=== PATIENT | female | born 1950 | race Caucasian/White ===

== ENCOUNTER → 2017-03-27 | Outpatient (CLI) | payer BC ==
[~2017-03-27] MED LIST: HYDR-842 PO; [UNRECOGNIZED DRUG - CODE] TOP
[2017-03-27 08:47] LABS: BASOPHILS % 0.6 % (0.0-2.0); EOSINOPHILS # 0.1 10^3/ul (0.0-0.5); EOSINOPHILS % 1.1 % (0.0-7.0); HEMATOCRIT 41.9 % (37.0-47.0); HEMOGLOBIN 14.1 g/dl (12.0-16.0); LYMPHOCYTES # 2.9 10^3/ul (0.8-2.9); LYMPHOCYTES % 40.7 % (15.0-51.0); MEAN CORPUSCULAR HGB CONC 33.7 g/dl (32.0-37.0); MEAN CORPUSCULAR VOLUME 89.1 fl (82.0-101.0); MEAN PLATELET VOLUME 9.1 fl (7.4-10.4); MONOCYTE # 0.6 10^3/ul (0.3-0.9); MONOCYTES % 8.6 % (0.0-11.0); NEUTROPHIL # 3.5 10^3/ul (1.6-7.5); NEUTROPHILS % 48.6 % (39.0-77.0); PLATELET COUNT 304 10^3/UL (140-415); RED CELL DISTRIBUTION WIDTH 12.6 % (11.5-14.5); WHITE BLOOD COUNT 7.2 10^3/ul (4.8-10.8)
[2017-03-27 09:15] LABS: ALBUMIN 4.1 g/dl (3.3-4.9); ALBUMIN/GLOBULIN RATIO 1.13; BILIRUBIN,INDIRECT 0.6 mg/dl (0-1.1); BILIRUBIN,TOTAL 0.6 mg/dl (0.2-1.3); CALCIUM 9.4 mg/dl (8.4-10.2); CHOL/HDL RATIO 3.6 RATIO; CREATININE 0.77 mg/dl (0.44-1.00); POTASSIUM 4.3 mmol/L (3.5-5.1); TOTAL PROTEIN 7.7 g/dl (6.1-8.1)
[2017-03-27 09:45] LABS: THYROID STIMULATING HORMONE 1.32 MIU/L (0.465-4.680)
--- NOTE | 2017-03-27 09:47 | RADRPT ---
PROCEDURE: XR Right Shoulder. CLINICAL INDICATION: Right shoulder pain. TECHNIQUE: Three views. Frontal internal rotation, frontal external rotation, and scapular Y-view . COMPARISON: No prior study is available for comparison. FINDINGS: There is no fracture or dislocation. The soft tissues are normal. Articular surfaces are intact. There is no lytic or blastic lesion. There is no radiopaque foreign body. IMPRESSION: 1. Normal images of the right shoulder. RPTAT: QQ .Jase Velasquez MD, MD Date Time Electronically viewed and signed by .Jase Velasquez MD, MD on 03/27/2017 09:46 .R/
--- NOTE | 2017-03-27 09:47 | RADRPT ---
PROCEDURE: XR Left Hip. CLINICAL INDICATION: Left hip pain. TECHNIQUE: Two views. Frontal and lateral. COMPARISON: No prior studies are available for comparison. FINDINGS: There is no fracture or dislocation. The soft tissues are normal. Articular surfaces are intact. There is no lytic or blastic lesion. There is no radiopaque foreign body. IMPRESSION: 1. Normal images of the left hip. RPTAT: QQ .Jase Velasquez MD, MD Date Time Electronically viewed and signed by .Jase Velasquez MD, MD on 03/27/2017 09:47 .R/
== END | disposition home or self-care (01) ==
LOC: LAB 08:25
PROVIDERS: ATTEND Internal Medicine
DX: R73.03 Prediabetes (principal); E78.5 Hyperlipidemia, unspecified; E03.9 Hypothyroidism, unspecified; M16.12 Unilateral primary osteoarthritis, left hip; M19.011 Primary osteoarthritis, right shoulder
CPT/HCPCS: 73510; 80053; 80061; 83036; 84436; 84443; 85025

== ENCOUNTER 2018-08-20 11:49 | Emergency (ER) | payer BC ==
[~2018-08-20] VITALS: Ht 167.6 cm; Wt 66.0 kg
[2018-08-20 11:51] VITALS: Ht 167.6 cm; Wt 66.0 kg
[2018-08-20] MEDS ORDERED: LORA10TA3 PO (13:49)
[2018-08-20] MEDS ORDERED: SOD CHLORIDE 0.9% 1,000 ML IV STA (14:02)
[2018-08-20] MEDS ORDERED: ONDANSETRON 4 MG INJ IV STA (14:02)
[2018-08-20] MEDS ORDERED: IOHEXOL 300MG/ML 150 ML BTL ONE (14:45)
[2018-08-20] MEDS ORDERED: SOD CHLORIDE 0.9% 100 ML ONE (14:45)
--- NOTE | 2018-08-20 15:51 | ERD ---
ER Documentation Chief Complaint Chief Complaint abd with diarrhea x 4 days HPI This is a 67-year-old female who is had 3 days of nausea vomiting diarrhea and left lower quadrant pain. The patient says that she thinks she ate some bad food on Saturday. She then subsequently had nausea vomiting diarrhea for the past 2 days and says today her symptoms are basically gone. She feels afraid to eat because she might throw up. She is had some crampiness in the left lower quadrant. No fever no chest pain shortness of breath no blood in her stool or vomit ROS All systems reviewed and are negative except as per history of present illness. Medications Home Meds Reported Medications Loratadine* (Loratadine*) 10 Mg Tablet, 10 MG PO DAILY, #30 TAB 08/20/18 Discontinued Scripts Diphenhydramine Hcl* (Benadryl* Topical) 2%-30 Gm Cream..g., 1 APPLIC TOP TID, #14 EA Prov:VIK DIAZ DO 10/13/15 Hydroxyzine Hcl* (Atarax*) 25 Mg Tab, 25 MG PO Q6H PRN for ITCHING, #18 TAB Prov:VIK DIAZ DO 10/13/15 Allergies Allergies: Coded Allergies: No Known Allergy (Unverified , 08/20/18) PMhx/Soc History of Surgery: No Anesthesia Reaction: No Hx Neurological Disorder: No Hx Respiratory Disorders: No Hx Cardiac Disorders: No Hx Psychiatric Problems: No Hx Miscellaneous Medical Probl: No Hx Alcohol Use: No Hx Substance Use: No Hx Tobacco Use: No Smoking Status: Never smoker FmHx Family History: No coronary disease Physical Exam Vitals Vital Signs Date Temp Pulse Resp B/P (MAP) Pulse Ox O2 O2 Flow FiO2 Time Delivery Rate 08/20/18 97.4 94 18 137/86 95 11:51 (103) Physical Exam Const: Well-developed, well-nourished Head: Atraumatic, normocephalic Eyes: Normal Conjunctiva, PERRLA, EOMI, normal sclera, no nystagmus ENT: Normal External Ears, Nose and Mouth, moist mucus membranes. Neck: Full range of motion. No meningismus, no lymphadenopathy. Resp: Clear to auscultation bilaterally, no wheezing, rhonchi, rales Cardio: Regular rate and rhythm, no murmurs, S1 S2 present Abd: Soft, left lower quadrant tenderness, non distended. Normal bowel sounds, no guarding or rebound, no pulsitile abdominal masses or bruits Skin: No petechiae or rashes, no ecchymosis , no maculopapular rash Back: No midline or flank tenderness Ext: No cyanosis, or edema, FROM x 4, normal inspection, neurovascularly intact x 4 Neur: Awake and alert, STR 5/5 x 4, sensation intact x 4, no focal findings, cerebellum intact Psych: Normal Mood and Affect Result Diagram: 08/20/18 1416 08/20/18 1416 Results 24 hrs Laboratory Tests Test 08/20/18 14:16 White Blood Count 5.7 10^3/ul Red Blood Count 4.55 10^6/ul Hemoglobin 13.1 g/dl Hematocrit 40.8 % Mean Corpuscular Volume 89.7 fl Mean Corpuscular Hemoglobin 28.8 pg Mean Corpuscular Hemoglobin Concent 32.1 g/dl Red Cell Distribution Width 12.9 % Platelet Count 290 10^3/UL Mean Platelet Volume 9.2 fl Immature Granulocytes % 0.200 % Neutrophils % 52.3 % Lymphocytes % 38.9 % Monocytes % 7.2 % Eosinophils % 0.9 % Basophils % 0.5 % Nucleated Red Blood Cells % 0.0 /100WBC Immature Granulocytes # 0.010 10^3/ul Neutrophils # 3.0 10^3/ul Lymphocytes # 2.2 10^3/ul Monocytes # 0.4 10^3/ul Eosinophils # 0.1 10^3/ul Basophils # 0.0 10^3/ul Nucleated Red Blood Cells # 0.0 10^3/ul Sodium Level 141 mmol/L Potassium Level 4.3 mmol/L Chloride Level 106 mmol/L Carbon Dioxide Level 26 mmol/L Anion Gap 9 Blood Urea Nitrogen 13 mg/dl Creatinine 0.62 mg/dl Est Glomerular Filtrat Rate mL/min > 60 mL/min Glucose Level 114 mg/dl Calcium Level 9.1 mg/dl Total Bilirubin 0.2 mg/dl Direct Bilirubin 0.00 mg/dl Indirect Bilirubin 0.2 mg/dl Aspartate Amino Transf (AST/SGOT) 20 IU/L Alanine Aminotransferase (ALT/SGPT) 24 IU/L Alkaline Phosphatase 68 IU/L Total Protein 7.4 g/dl Albumin 4.3 g/dl Globulin 3.10 g/dl Albumin/Globulin Ratio 1.38 Lipase 105 U/L Current Medications Medications Dose Sig/Peggy Start Time Status Last (Trade) Ordered Route PRN Stop Time Admin Dose Reason Admin Sodium 1,000 ml @ Q1H STAT 08/20/18 DC Chloride 1,000 mls/hr IV 14:02 08/20/18 15:01 Ondansetron 4 mg ONCE STAT 08/20/18 DC HCl (Zofran IV 14:02 08/20/18 Inj) 14:04 IV Flush 10 ml STK-MED 08/20/18 DC 08/20/18 (NS 10 ml) ONCE .ROUTE 14:45 08/20/18 15:15 14:46 Sodium 100 ml @ ud STK-MED 08/20/18 DC 08/20/18 Chloride ONCE .ROUTE 14:45 08/20/18 15:15 14:46 Iohexol 150 ml STK-MED 08/20/18 DC 08/20/18 (Omnipaque ONCE .ROUTE 14:45 08/20/18 15:15 300mg/ ml) 14:46 Procedures/MDM MR #: [id number] DOS: 08/20/18 1402 Ordering MD: KASHMIR CROWLEY DO Location: E/R Room/Bed: PROCEDURE: CT Abdomen and Pelvis With Intravenous Contrast CLINICAL INDICATION: LLQ pain TECHNIQUE: Axial computed tomography images of the abdomen and pelvis with intravenous contrast. Sagittal and coronal reformatted images were created and reviewed. CTDIvol (mGy) = 8.6; total DLP (mGy-cm) = 439.5. This CT exam was performed using one or more of the following dose reduction techniques: automated exposure control, adjustment of the mA and/or kV according to patient size, and/or use of iterative reconstruction technique. DICOM images are available. CONTRAST: 90 mL of Omnipaque-300 was administered intravenously. COMPARISON: None FINDINGS: LUNG BASES: Mild right basilar pulmonary scarring. No alveolar infiltrates or effusions. HEART: Mild inferior pericardial effusion. ABDOMEN: LIVER: Normal. No mass. GALLBLADDER AND BILE DUCTS: 2 cm stone in the gallbladder without distension or wall thickening. No ductal dilation. PANCREAS: Normal. No mass. No ductal dilation. SPLEEN: Normal. No splenomegaly. ADRENALS: Normal. No mass. KIDNEYS AND URETERS: Normal. No hydronephrosis. Retroaortic left renal vein. STOMACH AND BOWEL: Normal. No obstruction. No mucosal thickening. PELVIS: APPENDIX: No findings to suggest acute appendicitis. BLADDER: Normal. No mass. REPRODUCTIVE: Unremarkable as visualized. ABDOMEN and PELVIS: INTRAPERITONEAL SPACE: Normal. No free air. No significant fluid collection. BONES/JOINTS: No acute fracture. No dislocation. Degenerative disk changes of the spine are present. SOFT TISSUES: Normal. VASCULATURE: Calcific atherosclerosis of the aorta and coronary arteries. LYMPH NODES: Normal. No enlarged lymph nodes. IMPRESSION: 1. Cholelithiasis. 2. Mild inferior pericardial effusion. 3. Otherwise unremarkable contrast enhanced CT abdomen and pelvis without acute pathology identified. RPTAT:GG .Anjel Rodarte MD, Date Time Electronically viewed and signed by .Anjel Rodarte MD, MD on 08/20/2018 15:35 .L/ CC: KASHMIR CROWLEY DO [phone] Patient has some gallstones but normal liver function test and she has no pain in this area. She likely had food borne illness or virus. Will discharge home with symptomatic relief Departure Diagnosis: Primary Impression: Gastroenteritis Condition: Stable KASHMIR CROWLEY DO August 20, 2018 15:51
[2018-08-20] MEDS ORDERED: DIPH1TAB PO (15:52)
[2018-08-20] MEDS ORDERED: CIPR500T4 PO (15:52)
[2018-08-20] MEDS ORDERED: ONDA4TAB14 PO (15:52)
[2018-08-20 16:33] VITALS: BP 139/78; PULSE 78; RESP 20
== END 2018-08-20 16:36 | disposition home or self-care (01) ==
LOC: E/R 11:49
DX: K52.9 Noninfective gastroenteritis and colitis, unspecified (principal)
CPT/HCPCS: 36415; 74177; 80053; 83690; 85025; 99284; J7030; Q9967